=== PATIENT | male | born 1980 | race Caucasian/White ===

== ENCOUNTER 2016-06-30 16:13 | Inpatient (IN) | payer OTHER ==
[2016-06-30] MEDS ORDERED: LACTATED RINGERS 1,000 ML ONE (17:19)
--- NOTE | 2016-06-30 17:30 | RAD ---
CHEST 2 VIEWS HISTORY: Cough. Pneumonia. Frontal and lateral chest radiographs dated 06/30/2016. COMPARISON: None. FINDINGS: FOCAL AIRSPACE OPACITY: Patchy right basilar and left perihilar infiltrates. PLEURAL EFFUSION: None. CARDIOMEDIASTINAL SILHOUETTE: Nonenlarged. PNEUMOTHORAX: None identified. OSSEOUS STRUCTURES: Thoracic kyphosis. IMPRESSION: Left perihilar and right basilar infiltrates compatible with multifocal pneumonia. Recommend follow-up imaging.
[2016-06-30 17:34] LABS: ABSOLUTE NEUTROPHIL COUNT 7.7 K/mm3 (1.8-7.7); BASO % 0.3 % (0.2-1.0); HEMATOCRIT 45.6 % (32.0-52.0); HEMOGLOBIN 15.1 gm/l (14.0-18.0); IMM NEUT% 0.3 % (0-1); LYMPH # 0.6 (1.0-4.8); LYMPH % 6.8 % (15-45); MEAN CELL VOLUME 88.9 fl (80.0-94.0); MEAN CORPUSCULAR HEMOGLOBIN 29.4 pg (27.0-31.0); MEAN CORPUSCULAR HGB CONC 33.1 g/dl (33.0-37.0); MEAN PLATELET VOLUME 10.3 fl (7.4-10.4); MONO # 0.6 (0.0-0.8); MONO % 6.7 % (4-12); NEUT % 85.9 % (43-75); PLATELET COUNT 190 K/mm3 (130-400); RED CELL DISTRIBUTION WIDTH 12.9 % (11.5-14.5)
[2016-06-30 17:44] LABS: ALB/GLOB RATIO 1.4 (>1.0); ALBUMIN 4.4 gm/dL (3.5-5.7); CALCIUM 9.5 mg/dL (8.6-10.3)
[2016-06-30] MEDS ORDERED: CEFTRIAXONE SODIUM 1 G VIAL ONE (17:46)
[2016-06-30] MEDS ORDERED: BLISTEX LIPSTICK 1 EACH TP PRN (19:13)
[2016-06-30] MEDS ORDERED: BISACODYL 5 MG TABLET.EC PO PRN (19:13)
[2016-06-30] MEDS ORDERED: BISACODYL 10 MG SUP PR PRN (19:13)
[2016-06-30] MEDS ORDERED: MAGNESIUM HYDROXIDE 30 ML UDCUP PO PRN (19:13)
[2016-06-30] MEDS ORDERED: ACETAMINOPHEN 325 MG TABLET PO PRN (19:13)
[2016-06-30] MEDS ORDERED: DIPHENHYDRAMINE HCL 25 MG CAPSULE PO PRN (19:13)
[2016-06-30] MEDS ORDERED: SODIUM CHLORIDE 0.9% 1,000 ML IV SCH (19:15)
[2016-06-30] MEDS ORDERED: AZITHROMYCIN 500 MG VIAL ONE (19:34)
[2016-06-30] MEDS ORDERED: PUMP TUBING ONE (19:36)
[2016-06-30] MEDS: ALBUTEROL/IPRATROPIUM 2.5/0.5 MG 3 ML/EACH DOSE IH SCH (19:46)
[2016-06-30] MEDS: AZITHROMYCIN 500 MG in SODIUM CHLORIDE 0.9% 250 ML IV SCH (20:00)
[2016-06-30] MEDS: ENOXAPARIN SODIUM 40 MG/0.4 ML SYRINGE SUB-Q SCH (20:03)
[2016-06-30] MEDS: DOCUSATE SODIUM 100 MG CAPSULE PO SCH (21:42)
[2016-06-30] MEDS: INSULIN ASPART (DOSE) 100 UNITS/1 ML SUB-Q PRN (21:47)
[2016-06-30] MEDS: SODIUM CHLORIDE 0.9% 1,000 ML IV SCH (22:04)
[2016-06-30] MEDS: ALBUTEROL NEB 2.5 MG/3 ML VIAL.NEB IH PRN (23:30)
[2016-06-30] MEDS: MENTHOL/CETYLPYRD 1 EACH LOZENGE PO PRN (23:50)
[2016-07-01] MEDS: ALBUTEROL NEB 2.5 MG/3 ML VIAL.NEB IH PRN (05:06)
[2016-07-01 07:28] LABS: ABSOLUTE NEUTROPHIL COUNT 6.7 K/mm3 (1.8-7.7); BASO % 0.3 % (0.2-1.0); HEMATOCRIT 42.3 % (32.0-52.0); IMM NEUT% 0.2 % (0-1); LYMPH # 1.5 (1.0-4.8); LYMPH % 16.1 % (15-45); MEAN CELL VOLUME 88.7 fl (80.0-94.0); MEAN CORPUSCULAR HEMOGLOBIN 29.4 pg (27.0-31.0); MEAN CORPUSCULAR HGB CONC 33.1 g/dl (33.0-37.0); MEAN PLATELET VOLUME 10.1 fl (7.4-10.4); MONO # 1.1 (0.0-0.8); MONO % 11.7 % (4-12); NEUT % 71.7 % (43-75); PLATELET COUNT 176 K/mm3 (130-400)
[2016-07-01 07:50] LABS: CALCIUM 8.7 mg/dL (8.6-10.3)
--- NOTE | 2016-07-01 08:37 | PDOC43 ---
- Subjective Chief Complaint: SOB pt reports minimal change. s lilia feels SOB with cough and sputum. notes the nebs are helping him. has gone 3 hrs since last neb however. he denies pain. Subjective: Reports Pain Tolerable, Reports Tolerating Diet Well, Reports Adequate Oral Intake, Reports Urinating Without Difficulty, Reports Shortness of Breath, Reports Cough, Denies Chest Pain, Denies Abdominal Pain, Denies Nausea, Denies Vomiting, Denies Fever, Denies Chills - Objective Vital Signs Temperature 98.9 F 07/01/16 01:34 Pulse Rate 88 07/01/16 05:07 Respiratory Rate 30 07/01/16 05:07 Blood Pressure 145/73 07/01/16 01:34 O2 Saturation by Pulse Oximetry 96 07/01/16 01:34 Oxygen Delivery Method Nasal Cannula Oxygen Flow Rate 3 Intake and Output 06/29/16 06/30/16 07/01/16 23:59 23:59 23:59 Intake Total 2661 Output Total 1000 1000 Balance -1000 1661 General: Alert, Oriented x3, Cooperative, Mild Distress (tachypneic) HEENT: Atraumatic, Mucous membr. moist/pink Lungs: No Clear to Auscultation Bilaterally (decreased BL throughout), No Normal Air Movement (wheezes throughout. mildly improved from admit) Cardiovascular: Regular Rate and Rhythm, Normal S1, Normal S2, No Murmur Abdomen: Soft, Normal Bowel Sounds, Non-Distended, No Tenderness Extremities: No Cyanosis, No Edema, No Tenderness Skin: Warm, Dry, Intact Neurological: No Normal Speech (tachypneic with speech, 3-4 words now) Psych/Mental Status: Normal Affect, Normal Mood Laboratory 07/01/16 07:18 07/01/16 07:18 07/01/16 06/30/16 07:18 21:31 Estimated GFR 127 H POC Capillary Glucose 267 H Current Medications: Current meds reviewed in EMR. - Problems: Assessment/Plan (1) Community acquired bacterial pneumonia Status: AcuteAssessment/Plan: multifocal community acquired bacterial pneumonia. cultures pending having failed OP treatment, hypoxia on admit, needing O2 support still. on CTX and azithromycin. increase frequency of scheduled nebs today. will monitor closely, should be improving in 24-48 hrs from admit. (2) Asthma Qualifiers: Asthma severity: mild persistent Asthma complication type: with acute exacerbation Qualifier Code: (J45.31) Mild persistent asthma with (acute) exacerbation Status: ChronicAssessment/Plan: exacerbated by pneumonia steroids on board, nebs. 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 continue monitor. consider adding glipizide or the like if sugars remain up VTE Prophylaxis: lovenox Disposition: anticipate 2-3 days before DC
[2016-07-01] MEDS: ALBUTEROL NEB 2.5 MG/3 ML VIAL.NEB NEB SCH ×6 (08:41→23:42)
[2016-07-01] MEDS: ALBUTEROL/IPRATROPIUM 2.5/0.5 MG 3 ML/EACH DOSE IH SCH (08:43)
[2016-07-01] MEDS ORDERED: PREDNISONE 20 MG TABLET PO SCH (09:00)
[2016-07-01] MEDS: DOCUSATE SODIUM 100 MG CAPSULE PO SCH ×2 (09:46→20:09)
[2016-07-01] MEDS: SODIUM CHLORIDE 0.65% NASAL SPRAY 45 ML BOT NS PRN (10:52)
--- NOTE | 2016-07-01 11:41 | PDOC36 ---
Provider Note Subject: ICU transfer Note: Pt noted to have ongoing respiratory distress, with tachypnea and sats 93% despite 3L O2, nebs. Discussed with pt, would agree to Bipap/CPAP. He initially didn't wish to discuss transfer, but stated that perhaps [facility] would be ok, and that his would help with deciding this. On exam Uncomfortable male, sl dusky appearance, tachypneic. Lungs with poor air movement bilat, wheezes. Vital Signs Last 12 Hours Temp Pulse Resp BP Pulse Ox 07/01/16 08:35 98.5 F 84 30 134/81 93 07/01/16 08:00 30 07/01/16 05:07 88 30 07/01/16 01:34 98.9 F 92 28 145/73 96 07/01/16 01:00 28 Assessment: 1. Increasing respiratory distress with acute respiratory failure Plan ICU Plan ABG Plan Bipap Did discuss intubation, and he sounds like he would consider this and/or transfer;
[2016-07-01] MEDS ORDERED: PUMP TUBING ONE ×3 (12:12→17:40)
[2016-07-01] MEDS: INSULIN ASPART (DOSE) 100 UNITS/1 ML SUB-Q PRN ×3 (12:17→22:45)
[2016-07-01] MEDS: D5 1/2NS with 20 mEq KCL 1,000 ML IV SCH ×2 (12:18→22:29)
--- NOTE | 2016-07-01 12:19 | HP ---
JAMES THACKER [id number] MRN NUMBER: [id number] DATE OF : 1980 PRIMARY CARE PROVIDER: Dr. Malhotra in the [facility] DATE OF ADMISSION: 06/30/2016 CHIEF COMPLAINT: Shortness of breath. HISTORY OF PRESENT ILLNESS: The patient is a 36-year-old gentleman with a history of asthma and diabetes who presented with diagnosis of pneumonia. He saw his primary care yesterday for cough congestion and fevers. He began to get sick Saturday night, continued to work. 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 Chest x-ray that day showed a right sided lower pneumonia. He was given azithromycin which he did take, and patient states he was feeling worse today and so came into the emergency department. He is noted to have bilateral pneumonia now and hypoxia. He is admitted for management of failed outpatient treatment of pneumonia. PAST MEDICAL HISTORY: Positive for: 1. Diabetes type 2. The patient has not been taking his metformin for the past 3 days because of his illness. 2. He also has a history of asthma which is well controlled normally. PAST SURGICAL HISTORY: Positive for: 1. Pins in his finger as well as reset of the collar bone break. He states he has had other multiple broken bones, but those two required surgical fixation. ALLERGIES: NO KNOWN DRUG ALLERGIES. MEDICATIONS: The patient is currently takin. Metformin 500 mg by mouth twice a day. 2. Albuterol metered dose inhaler 2 puffs every 4 hours as needed for shortness of breath. 3. He has also been given Zithromax 500 mg by mouth daily which he took yesterday. 4. Prednisone of unknown doses which he was taken because of his acute illness. 5. Ibuprofen of unknown doses which he was taken because of his acute illness. 6. Tylenol of unknown doses which he was taken because of his acute illness. SOCIAL HISTORY: The patient is a smoker, though he has not had any cigarettes since Saturday. He denies any alcohol use, and denies any drug use. FAMILY HISTORY: Patient has a strong family history of asthma amongst the family. His father had diabetes, and there is some colon cancer in the family as well. REVIEW OF SYSTEMS: A full 14-point review of systems shows the patient has reported fever, malaise, chest pain with coughing, as well as some upper abdominal pain with cough. He does have some shortness of breath and wheezing. He has coughed up some bloody streaks of his sputum, and he is coughing up a good deal of sputum. All other review of systems is negative. PHYSICAL EXAMINATION: VITAL SIGNS: Temperature is 99.8 at the time of admission. Pulse rate is 82. Blood pressure is 137/77. Respiratory rate is 28. He is saturating 94% on nasal cannula 3 L. GENERAL: Patient is lying in bed. He appears tachypneic, and is talking in one to two word sentences only. He is not currently in any major distress. HEENT: Eyes: Extraocular movements intact. Pupils are equal, round, and reactive too light and accommodation. Head: Normocephalic, atraumatic. Mucous membranes are tachy. HEART: Regular rate and rhythm. No murmurs and no rubs. SKIN: Warm, dry and intact. LUNGS: Decreased breath sounds bilaterally with wheezes throughout, worse in the lower lobes. ABDOMEN: Obese, soft, nontender and nondistended. Positive bowel sounds. EXTREMITIES: No cyanosis, clubbing, or edema. NEUROLOGIC: The patient is awake, alert, and oriented. He is moving all of his extremities. PSYCHOLOGIC: Patient's affect is full and appropriate. DIAGNOSTIC IMAGING: Chest x-ray performed in the emergency department prior to admission shows bilateral basilar infiltrates compatible with multifocal pneumonia. LABORATORY DATA: Shows a sodium of 133, potassium 4.4, chloride is 99. CO2 is 29. Creatinine is 0.8. BUN is 13. Glucose is 194. Calcium is 9.5. His liver function tests are all normal. Troponin was less than 0.01. White count is 9. Hemoglobin is 15.1. Hematocrit is 45.6, and platelet count is 190. Neutrophils are 85.9% suggesting a slightly left shift. VBG lactate is 1.6. ASSESSMENT AND PLAN: 1. Community acquired bacterial pneumonia having failed outpatient treatment. The patient was given azithromycin though he was only able to take one dose of this. He has now failed outpatient treatment with hypoxia. He will be placed on ceftriaxone, and azithromycin secondary to his complicating asthma, and he received his first doses of these in the emergency department. I will continue these medications. I will also be giving him scheduled Duoneb with Albuterol nebulizer in between if requested. He is on oxygen and we will be titrating this as we are able to do so. He will also be started on prednisone for his asthma. Further clinical care will be dictated by his clinical course. He did not have any sepsis markers at this time. 2. Asthma exacerbation. The patient has an asthma exacerbation secondary to his active infection. As noted above, I am going to be giving him prednisone and nebulizers to try and keep his asthma under control, and we will adjust if necessary. 3. Diabetes type 2. The patient has a history of diabetes type 2. He has been off of his metformin for the past 3 days and with his infection, I expect his sugars to be up. As such, I am going to be doing capillary blood glucoses and covering with sliding scale. Patient has indicated that he will be refusing insulin. He has no reason for this. He states only "I am stubborn". I have discussed the risks of not getting good blood sugar controls. He declined any oral medications as well. I will place him on a diabetic diet and monitor him as best as possible and as he allows us to do so. 4. Deep venous thrombosis prophylaxis. The patient will be getting enoxaparin. 5. Code status. The patient is a FULL CODE. LARRY/matteo Cc: Dr. Malhotra in the [facility].
[2016-07-01] MEDS: ALBUTEROL/IPRATROPIUM 2.5/0.5 MG 3 ML/EACH DOSE NEB SCH ×3 (12:23→23:32)
[2016-07-01] MEDS: METHYLPRED SOD SUCCINATE 125 MG VIAL IV SCH ×2 (12:25→20:09)
[2016-07-01] MEDS: SODIUM CHLORIDE 0.9% 1,000 ML IV SCH (12:36)
--- NOTE | 2016-07-01 12:59 | RAD ---
PORTABLE CHEST RADIOGRAPH HISTORY: Pneumonia. Frontal portable chest radiograph dated 07/01/2016. COMPARISON: 06/30/2016. FINDINGS: FOCAL AIRSPACE OPACITY: Redemonstration of left perihilar and right basal airspace opacity compatible with multifocal pneumonia. Over the interval there is slight increase in prominence on the right basilar density. PLEURAL EFFUSION: None. CARDIOMEDIASTINAL SILHOUETTE: Nonenlarged. PNEUMOTHORAX: None identified. OSSEOUS STRUCTURES: No grossly destructive lesions. IMPRESSION: Redemonstration of multifocal airspace abnormality compatible with pneumonia, mildly worsened at the right lung base.
[2016-07-01 13:43] LABS: ARTERIAL BLOOD GAS BASE EXCESS 2.2 mmol/L (-2.0-2.0); ARTERIAL BLOOD GAS HCO3 27.4 mmol/L (22.0-28.0); ARTERIAL BLOOD GAS PCO2 44.7 mmHg (35.0-45.0); ARTERIAL BLOOD GAS PO2 61.8 mmHg (80.0-90.0); ARTERIAL BLOOD GAS pH 7.406 (7.350-7.450)
[2016-07-01 16:18] LABS: ARTERIAL BLOOD GAS BASE EXCESS -1.4 mmol/L (-2.0-2.0); ARTERIAL BLOOD GAS HCO3 22.8 mmol/L (22.0-28.0); ARTERIAL BLOOD GAS PCO2 36.9 mmHg (35.0-45.0); ARTERIAL BLOOD GAS PO2 52.4 mmHg (80.0-90.0); ARTERIAL BLOOD GAS pH 7.409 (7.350-7.450)
[2016-07-01] MEDS ORDERED: MAGNESIUM SULFATE 4 G/100 ML 4 G in Premix (Water) 100 ml 1 EACH IV ONE (16:45)
--- NOTE | 2016-07-01 16:47 | PDOC36 ---
Provider Note Subject: Update Note: Discussed care with Dr Sher at [facility]. He reports care so far appropriate, similar to what he would do. He suggests we could consider use of Magnesium, so will try a Magnesium infusion. Although pt's O2 is lower on ABG, VS suggest improvment and would prefer to keep pt here at this time. Reviewed with patient, he would prefer to stay here. Will recheck ABG and Mg level at 8 pm, and review VS, and could discuss further with Dr Sher if concerns. Vital Signs Last 12 Hours Temp Pulse Resp BP Pulse Ox 07/01/16 16:43 76 24 145/72 100 07/01/16 15:45 84 130/76 100 07/01/16 15:42 79 23 130/76 97 07/01/16 15:06 82 26 91 07/01/16 14:01 99.3 F 73 29 150/75 97 07/01/16 13:00 99.3 F 68 20 152/82 100 07/01/16 12:25 82 25 100 07/01/16 12:00 100.8 F 82 30 136/80 100 07/01/16 11:00 31 91 07/01/16 08:35 98.5 F 84 30 134/81 93 07/01/16 08:00 30 07/01/16 05:07 88 30 Laboratory Tests 07/01/16 07/01/16 11:50 15:38 pCO2 44.7 36.9 pO2 61.8 L 52.4 L ABG pH 7.406 7.409 ABG HCO3 27.4 22.8 ABG O2 Saturation 93.1 L 89.1 L ABG Base Excess 2.2 H -1.4
[2016-07-01] MEDS ORDERED: IV START KIT ONE (16:50)
[2016-07-01] MEDS ORDERED: SODIUM CHLORIDE 0.9% FLUSH 10 ML ONE (16:50)
[2016-07-01] MEDS: CEFTRIAXONE 1 GRAM DUPLEX 1 G in Premix (D5W) 50 ml 1 EACH IV SCH (17:44)
[2016-07-01] MEDS: AZITHROMYCIN 500 MG in SODIUM CHLORIDE 0.9% 250 ML IV SCH (20:08)
[2016-07-01] MEDS: ENOXAPARIN SODIUM 40 MG/0.4 ML SYRINGE SUB-Q SCH (20:09)
[2016-07-01 20:24] LABS: MAGNESIUM 3.1 mg/dL (1.9-2.7)
[2016-07-01 20:30] LABS: ABSOLUTE NEUTROPHIL COUNT 7.3 K/mm3 (1.8-7.7); BASO % 0.1 % (0.2-1.0); HEMOGLOBIN 14.2 gm/l (14.0-18.0); IMM NEUT% 0.4 % (0-1); LYMPH # 0.8 (1.0-4.8); LYMPH % 8.9 % (15-45); MEAN CELL VOLUME 88.1 fl (80.0-94.0); MEAN CORPUSCULAR HEMOGLOBIN 29.1 pg (27.0-31.0); MEAN PLATELET VOLUME 10.3 fl (7.4-10.4); MONO # 0.5 (0.0-0.8); MONO % 5.3 % (4-12); NEUT % 85.3 % (43-75); PLATELET COUNT 186 K/mm3 (130-400); RED CELL DISTRIBUTION WIDTH 12.8 % (11.5-14.5)
[2016-07-01] MEDS ORDERED: HYDROCODONE/ACETAMINOPHEN 5/325MG TABLET PO PRN (21:51)
[2016-07-01] MEDS ORDERED: LORAZEPAM 0.5 MG TABLET PO PRN (21:53)
[2016-07-02] MEDS: ALBUTEROL NEB 2.5 MG/3 ML VIAL.NEB NEB SCH ×7 (02:40→20:45)
[2016-07-02] MEDS: METHYLPRED SOD SUCCINATE 125 MG VIAL IV SCH ×3 (04:21→19:39)
[2016-07-02] MEDS: D5 1/2NS with 20 mEq KCL 1,000 ML IV SCH (04:50)
[2016-07-02] MEDS: ALBUTEROL/IPRATROPIUM 2.5/0.5 MG 3 ML/EACH DOSE NEB SCH ×3 (05:28→18:23)
[2016-07-02 05:57] LABS: ABSOLUTE NEUTROPHIL COUNT 7.6 K/mm3 (1.8-7.7); BASO % 0.1 % (0.2-1.0); HEMATOCRIT 40.8 % (32.0-52.0); HEMOGLOBIN 13.5 gm/l (14.0-18.0); IMM NEUT% 0.4 % (0-1); LYMPH % 11.3 % (15-45); MEAN CELL VOLUME 89.3 fl (80.0-94.0); MEAN CORPUSCULAR HEMOGLOBIN 29.5 pg (27.0-31.0); MEAN CORPUSCULAR HGB CONC 33.1 g/dl (33.0-37.0); MEAN PLATELET VOLUME 10.2 fl (7.4-10.4); MONO # 0.5 (0.0-0.8); NEUT % 83.2 % (43-75); PLATELET COUNT 209 K/mm3 (130-400); RED CELL DISTRIBUTION WIDTH 12.6 % (11.5-14.5)
[2016-07-02 06:02] LABS: CALCIUM 8.7 mg/dL (8.6-10.3)
--- NOTE | 2016-07-02 07:04 | PDOC43 ---
- Subjective Chief Complaint: SOB Noted to be breathing better. BG were higher, attributed to prednisone, D5, underlying DM. Patient tired, but did sleep some with Benadryl. Breathing better, some discomfort noted. c/o dry mouth from Bipap. RN noted BG higher. - Objective Vital Signs Temperature 98.3 F 07/02/16 04:00 Pulse Rate 55 07/02/16 06:02 Respiratory Rate 20 07/02/16 06:02 Blood Pressure 109/61 07/02/16 06:02 O2 Saturation by Pulse Oximetry 97 07/02/16 06:02 Oxygen Delivery Method Bi-PAP Oxygen Flow Rate 5 Vital Signs Last 12 Hours Temp Pulse Resp BP Pulse Ox 07/02/16 06:02 55 20 109/61 97 07/02/16 05:29 47 117/67 100 07/02/16 05:28 51 13 99 07/02/16 05:00 51 20 117/67 98 07/02/16 04:00 98.3 F 54 20 122/57 98 07/02/16 03:00 55 20 120/67 98 07/02/16 02:42 56 117/62 100 07/02/16 02:40 57 20 100 07/02/16 02:05 55 20 117/62 98 07/02/16 01:11 25 07/02/16 01:00 60 26 123/65 92 07/02/16 00:00 98.7 F 65 24 123/65 96 07/01/16 23:42 68 137/84 97 07/01/16 23:33 100 07/01/16 22:52 68 24 126/83 100 07/01/16 21:47 72 25 142/72 07/01/16 21:15 77 142/72 100 07/01/16 20:27 72 21 92 07/01/16 20:00 74 24 128/65 95 07/01/16 19:16 92 07/01/16 19:07 98.7 F 71 24 124/60 90 Intake and Output 06/30/16 07/01/16 07/02/16 23:59 23:59 23:59 Intake Total 4066 2619 Output Total 1000 6250 Balance -1000 -2183 2619 General: Other (not distressed, but appears tired, sl medicated. Answers appropriately.) Lungs: Other (air movement decreased bilat, but improved vs arrival at ICU. Prolonged exp phase, and sl wheezing noted, but much improved chest excusion, air movement.) Cardiovascular: Regular Rate and Rhythm Abdomen: Soft, Normal Bowel Sounds, Non-Distended Extremities: Other (SCDs on), No Edema Skin: Normal Color Neurological: Other (Speech much improved, up to sentences now.) Psych/Mental Status: Other (tired appearing.) Laboratory 07/02/16 05:15 07/02/16 05:15 07/02/16 07/01/16 07/01/16 05:15 22:40 20:00 RBC 4.57 L pO2 ABG O2 Saturation ABG Base Excess Estimated GFR 127 H 127 H POC Capillary Glucose 310 H Magnesium 3.1 H 07/01/16 07/01/16 07/01/16 15:38 15:28 11:55 RBC pO2 52.4 L ABG O2 Saturation 89.1 L ABG Base Excess Estimated GFR POC Capillary Glucose 220 H 236 H Magnesium 07/01/16 07/01/16 11:50 07:18 RBC pO2 61.8 L ABG O2 Saturation 93.1 L ABG Base Excess 2.2 H Estimated GFR 127 H POC Capillary Glucose Magnesium Current Medications: Current meds reviewed in EMR. Active Medications Acetaminophen (Tylenol) 650 mg PO Q6H PRN PRN Reason: Pain or Temperature > 100.5 F Acetaminophen/Hydrocodone Bitart (Farwell 5/325) 1 tab PO Q4H PRN PRN Reason: pain and/or dyspnea Albuterol Sulfate (Ventolin Inhalation Solution (Dose)) 2.5 mg IH Q1H PRN PRN Reason: Wheezing Last Admin: 07/01/16 05:06 Dose: 2.5 mg Albuterol Sulfate (Ventolin Inhalation Solution (Dose)) 2.5 mg NEB Q3H JOANIE Last Admin: 07/02/16 05:31 Dose: Not Given Albuterol/Ipratropium (Duoneb) 3 ml NEB Q6HR JOANIE Last Admin: 07/02/16 05:28 Dose: 3 ml Benzocaine/Menthol (Cepacol) 1 each PO PRN PRN PRN Reason: Sore Throat Last Admin: 06/30/16 23:50 Dose: 1 each Bisacodyl (Dulcolax) 10 mg NJ DAILY PRN PRN Reason: Constipation Bisacodyl (Dulcolax) 5 mg PO DAILY PRN PRN Reason: Constipation Diphenhydramine HCl (Benadryl) 25 - 50 mg PO Q6H PRN PRN Reason: Itching Last Admin: 07/01/16 22:32 Dose: 50 mg Docusate Sodium (Colace) 100 mg PO BID ON LICENSE OF [facility] Last Admin: 07/01/16 20:09 Dose: 100 mg Enoxaparin Sodium (Lovenox) 40 mg SUB-Q QPM ON LICENSE OF [facility] Last Admin: 07/01/16 20:09 Dose: 40 mg Ceftriaxone Sodium/Dextrose 1 (g/ Premix (D5W) 50 ml) 50 mls @ 100 mls/hr IV Q24H ON LICENSE OF [facility] Last Admin: 07/01/16 17:44 Dose: 100 mls/hr Sodium Chloride (Sodium Chloride 0.9%) 100 mls @ 25 mls/hr IV PRN PRN PRN Reason: Flush Potassium Chloride/Dextrose/Sod Cl (D51/2ns With 20 Meq Kcl) 1,000 mls @ 150 mls/hr IV .Q6H40M ON LICENSE OF [facility] Last Admin: 07/02/16 04:50 Dose: 150 mls/hr Azithromycin 500 mg/ Sodium (Chloride) 250 mls @ 250 mls/hr IV Q24H ON LICENSE OF [facility] Insulin Aspart (Novolog (Dose)) 0 units SUB-Q WM/BEDTIME PRN; Protocol PRN Reason: Blood Sugar > Last Admin: 07/01/16 22:45 Dose: 6 units Lorazepam (Ativan) 0.5 mg PO Q4H PRN PRN Reason: Anxiety Magnesium Hydroxide (Milk Of Magnesia) 30 ml PO DAILY PRN PRN Reason: Constipation Methylprednisolone Sodium Succinate (Solu-Medrol) 125 mg IV Q8H ON LICENSE OF [facility] Last Admin: 07/02/16 04:21 Dose: 125 mg Petrolatum/Paraffin/Mineral Oil (Blistex) 1 each TP PRN PRN PRN Reason: Dry and/or chapped lips Sodium Chloride (Normal Saline 10ml Flush) 10 - 50 ml IV PRN PRN PRN Reason: IV Flush Sodium Chloride (Normal Saline 10ml Flush) 10 ml IV Q8HR ON LICENSE OF [facility] Last Admin: 07/02/16 01:22 Dose: Not Given Sodium Chloride (Saline 0.65% Nasal Logan) 2 applic NS Q1-2H PRN PRN Reason: Congestion Last Admin: 07/01/16 10:52 Dose: 2 applic - Problems: Assessment/Plan (1) Status asthmaticus Qualifiers: Asthma severity: unspecified severity Qualifier Code: (J45.902) Unspecified asthma with status asthmaticus Status: AcuteAssessment/Plan: Improved after steroids - Solumedrol, and did receive Mg yesterday. Clinically improved, will continue off Bipap now. Check ABG, CXR this am. (2) Community acquired bacterial pneumonia Status: AcuteAssessment/Plan: multifocal community acquired bacterial pneumonia. cultures pending; neg so far failed OP treatment on Ceftriaxone and azithromycin. No fevers. 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 plan to start insulin; pt previous refused. continue monitor. will add amaryl. VTE Prophylaxis: lovenox Disposition: anticipate 2-3 days before DC; will make IMCU status today
[2016-07-02 07:48] LABS: ARTERIAL BLOOD GAS HCO3 21.4 mmol/L (22.0-28.0); ARTERIAL BLOOD GAS PO2 59.6 mmHg (80.0-90.0); ARTERIAL BLOOD GAS pH 7.391 (7.350-7.450)
--- NOTE | 2016-07-02 08:51 | RAD ---
CHEST-AP BEDSIDE COMPARISON: Chest one view, 07/01/2016 HISTORY: Follow-up pneumonia. FINDINGS: Views: Frontal chest. Lungs: Reduction in the right infrahilar infiltrate. Partial reduction in the left perihilar infiltrate. Heart and vessels: Normal Trachea and bronchi: Normal Mediastinum and yary: Normal Costophrenic sulci: Normal Chest wall and bones: Normal Upper abdomen: Normal. IMPRESSION: 1. Improved appearance with marked reduction in the infiltrate in the right lower lobe and partial reduction in the left perihilar infiltrate/pneumonia.
[2016-07-02] MEDS: GUAIFENESIN 600 MG TABLET.DR PO SCH ×2 (10:29→20:31)
[2016-07-02] MEDS: DOCUSATE SODIUM 100 MG CAPSULE PO SCH ×2 (10:29→20:31)
[2016-07-02] MEDS: GLIMEPIRIDE 4 MG TABLET PO SCH (10:29)
[2016-07-02] MEDS: INSULIN ASPART (DOSE) 100 UNITS/1 ML SUB-Q PRN ×3 (13:04→22:18)
[2016-07-02] MEDS: CEFTRIAXONE 1 GRAM DUPLEX 1 G in Premix (D5W) 50 ml 1 EACH IV SCH (18:02)
[2016-07-02] MEDS: ENOXAPARIN SODIUM 40 MG/0.4 ML SYRINGE SUB-Q SCH (19:32)
[2016-07-02] MEDS: AZITHROMYCIN 500 MG in SODIUM CHLORIDE 0.9% 250 ML IV SCH (19:46)
[2016-07-02] MEDS: SODIUM CHLORIDE 0.9% 100 ML IV PRN (19:46)
[2016-07-03] MEDS: ALBUTEROL/IPRATROPIUM 2.5/0.5 MG 3 ML/EACH DOSE NEB SCH ×4 (00:06→17:22)
[2016-07-03] MEDS: ALBUTEROL NEB 2.5 MG/3 ML VIAL.NEB NEB SCH ×6 (00:07→14:56)
[2016-07-03] MEDS ORDERED: DIPHENHYDRAMINE HCL 25 MG CAPSULE PO ONE (00:29)
[2016-07-03] MEDS: METHYLPRED SOD SUCCINATE 125 MG VIAL IV SCH ×3 (03:57→17:46)
[2016-07-03 06:28] LABS: ABSOLUTE NEUTROPHIL COUNT 9.4 K/mm3 (1.8-7.7); HEMATOCRIT 38.4 % (32.0-52.0); HEMOGLOBIN 12.9 gm/l (14.0-18.0); IMM NEUT% 0.4 % (0-1); LYMPH # 1.1 (1.0-4.8); LYMPH % 9.8 % (15-45); MEAN CELL VOLUME 87.9 fl (80.0-94.0); MEAN CORPUSCULAR HEMOGLOBIN 29.5 pg (27.0-31.0); MEAN CORPUSCULAR HGB CONC 33.6 g/dl (33.0-37.0); MEAN PLATELET VOLUME 10.8 fl (7.4-10.4); MONO # 0.7 (0.0-0.8); MONO % 5.9 % (4-12); NEUT % 83.9 % (43-75); PLATELET COUNT 225 K/mm3 (130-400); RED CELL DISTRIBUTION WIDTH 12.5 % (11.5-14.5)
[2016-07-03 06:50] LABS: ALB/GLOB RATIO 1.2 (>1.0); ALBUMIN 3.6 gm/dL (3.5-5.7)
[2016-07-03 07:39] VITALS: BMI 35.8
[2016-07-03] MEDS: INSULIN ASPART (DOSE) 100 UNITS/1 ML SUB-Q PRN ×4 (09:05→22:54)
[2016-07-03] MEDS: DOCUSATE SODIUM 100 MG CAPSULE PO SCH ×2 (09:05→20:11)
[2016-07-03] MEDS: GUAIFENESIN 600 MG TABLET.DR PO SCH ×2 (09:06→20:11)
[2016-07-03] MEDS: GLIMEPIRIDE 4 MG TABLET PO SCH (09:06)
--- NOTE | 2016-07-03 15:15 | PDOC43 ---
- Subjective Chief Complaint: SOB Feeling better today. Still more SOB/weak than nl but significantly improved. Subjective: Reports Tolerating Diet Well, Reports Adequate Oral Intake, Denies Chest Pain, Denies Abdominal Pain, Denies Nausea, Denies Vomiting, Denies Fever , Denies Chills - Objective Vital Signs Temperature 97.9 F 07/03/16 12:12 Pulse Rate 74 07/03/16 14:30 Respiratory Rate 22 07/03/16 14:30 Blood Pressure 139/58 07/03/16 14:30 O2 Saturation by Pulse Oximetry 90 07/03/16 14:30 Oxygen Delivery Method Room Air Oxygen Flow Rate 0 Intake and Output 07/02/16 07/03/16 07/04/16 06:59 06:59 06:59 Intake Total 4024 1465 1270 Output Total 5250 2350 650 Balance -1226 -885 620 General: Alert, Oriented x3, Cooperative, No Acute Distress HEENT: Atraumatic Lungs: Clear to Auscultation Bilaterally, Other (Poor air movement all block B. ) Cardiovascular: Regular Rate and Rhythm Abdomen: Soft, Normal Bowel Sounds, Non-Distended, No Tenderness Extremities: Normal Pulses, No Edema Laboratory 07/03/16 05:45 07/03/16 05:45 Current Medications: Current meds reviewed in EMR. - Problems: Assessment/Plan (1) Community acquired bacterial pneumonia Status: AcuteAssessment/Plan: Multifocal community acquired bacterial pneumonia. Much improved today. All cx negative. Con't Ceftriaxone/azithromycin/supportive care. (2) Status asthmaticus Qualifiers: Asthma severity: unspecified severity Qualifier Code: (J45.902) Unspecified asthma with status asthmaticus Status: AcuteAssessment/Plan: Improved today. Off Bipap. Still desats with exertion, but otherwise much improved O2 sats. 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 Add Lantus. Con't correction scale. VTE Prophylaxis: lovenox Disposition: Anticipate d/c home in AM.
[2016-07-03] MEDS: INSULIN GLARGINE (DOSE) 100 UNITS/ML UNIT SUB-Q SCH (15:42)
[2016-07-03] MEDS ORDERED: ALBUTEROL NEB 2.5 MG/3 ML VIAL.NEB NEB PRN (17:00)
[2016-07-03] MEDS ORDERED: PUMP TUBING ONE ×2 (17:41→20:02)
[2016-07-03] MEDS: CEFTRIAXONE 1 GRAM DUPLEX 1 G in Premix (D5W) 50 ml 1 EACH IV SCH (17:46)
[2016-07-03] MEDS: SODIUM CHLORIDE 0.9% 100 ML IV PRN (17:46)
[2016-07-03] MEDS: SODIUM CHLORIDE 0.65% NASAL SPRAY 45 ML BOT NS PRN (17:46)
[2016-07-03] MEDS ORDERED: CEFTRIAXONE 1 GRAM DUPLEX 50 ML IV ONE (19:58)
[2016-07-03] MEDS: AZITHROMYCIN 500 MG in SODIUM CHLORIDE 0.9% 250 ML IV SCH (20:10)
[2016-07-03] MEDS: ENOXAPARIN SODIUM 40 MG/0.4 ML SYRINGE SUB-Q SCH (20:14)
[2016-07-04] MEDS: METHYLPRED SOD SUCCINATE 125 MG VIAL IV SCH ×2 (00:30→06:30)
[2016-07-04] MEDS: ALBUTEROL/IPRATROPIUM 2.5/0.5 MG 3 ML/EACH DOSE NEB SCH ×3 (00:36→12:39)
[2016-07-04] MEDS: MENTHOL/CETYLPYRD 1 EACH LOZENGE PO PRN (00:42)
[2016-07-04 07:33] VITALS: BP 124/80
[2016-07-04] MEDS: INSULIN ASPART (DOSE) 100 UNITS/1 ML SUB-Q PRN (08:41)
[2016-07-04] MEDS: DOCUSATE SODIUM 100 MG CAPSULE PO SCH (08:41)
[2016-07-04] MEDS: GLIMEPIRIDE 4 MG TABLET PO SCH (08:42)
[2016-07-04] MEDS: GUAIFENESIN 600 MG TABLET.DR PO SCH (08:42)
[2016-07-04] MEDS: CEFTRIAXONE 1 GRAM DUPLEX 1 G in Premix (D5W) 50 ml 1 EACH IV SCH (10:39)
[2016-07-04] MEDS: INSULIN GLARGINE (DOSE) 100 UNITS/ML UNIT SUB-Q SCH (10:40)
--- NOTE | 2016-07-04 11:12 | DS ---
Earl Willis ADMIT DATE: 06/30/2016 DISCHARGE DATE: 07/04/2016 ADMIT DIAGNOSES: 1. Community acquired pneumonia failing outpatient treatment. 2. Asthma exacerbation. 3. Diabetes type 2. DISCHARGE DIAGNOSES: 1. Community acquired pneumonia, all cultures remained negative. 2. Asthma exacerbation progressed to status asthmaticus after admission. 3. Diabetes mellitus type 2. ADMIT HISTORY AND PHYSICAL: Please see Dr. Marquis's note for details. Briefly, Earl is a 36-year-old male with known underlying asthma and diabetes. He presented to his primary care physicians office the day prior to admission with about a one week history of upper respiratory infection symptoms including cough and fever. He was started on Azithromycin after a chest x-ray showed a right lower lobe pneumonia. His symptoms actually continued to worsen and he presented to the emergency room on the day of admission. In the emergency room he was found to have a bilateral pneumonia with marked hypoxia. It was felt he was having an asthma exacerbation in the context of a bilateral community acquired pneumonia that had failed outpatient treatment. He was subsequently referred to the hospitalist service. HOSPITAL COURSE: He was admitted, started on Rocephin and azithromycin as well as prednisone, nebulizer's and supportive care. He actually worsened significantly on hospital day one with a further flare of his asthma to the point of status asthmaticus. He was treated with aggressive nebulizers, IV magnesium, transferred to the intensive care unit and placed on BiPAP. A phone consult was obtained with pulmonology and was felt that there was no reason to transfer as the patient had responded well to the above interventions. He did then after hospital day one continue to improve. By the day prior to discharge he was actually off of oxygen and doing well though he was still significantly short of breath. All cultures remained negative. By day of discharge he had been off of oxygen for greater than 24 hours. He was feeling very anxious to go home. We elected to discharge him home with plans for close outpatient follow up. I have recommended he not return to work until cleared by his regular physician. DISCHARGE MEDICATIONS: 1. Prednisone taper 20 mg tablets three tablets by mouth daily x4 days, then 2 tablets by mouth daily x4 days, then 1 tablet daily x4 days, 1/2 tablet by mouth daily x4 days, and then off. 2. Amaryl 2 mg by mouth daily (new medication). 3. Cefdinir 300 mg by mouth twice daily x7 days. 4. Albuterol nebulizer every 2 hours as needed (patient has medication at home). 5. Albuterol MDI 2 puffs every 3 to 4 hours as needed. 6. Metformin 500 mg by mouth twice daily. DISCHARGE FOLLOW UP: Will be with his regular physician Dr. Malhotra within the next two to five days. Follow up at the emergency room if he has any worsening of his symptoms in the meantime. JOB: [id number] CC: Dr. Malhotra at the [facility]
[2016-07-04] MEDS: AZITHROMYCIN 500 MG in SODIUM CHLORIDE 0.9% 250 ML IV SCH (11:24)
== END 2016-07-04 12:50 | disposition home or self-care (01) | DRG 194 ==
LOC: ED 16:13 → MS 17:40 → ICU 07-01 11:41 → MS 07-03 19:16 → ICU 07-03 19:16
PROVIDERS: ADMIT Family Medicine; ATTEND Family Medicine
DX: J18.9 Pneumonia, unspecified organism (principal); J45.901 Unspecified asthma with (acute) exacerbation; E11.9 Type 2 diabetes mellitus without complications; Z79.84 Long term (current) use of oral hypoglycemic drugs